=== PATIENT | female | born 1950 | race Caucasian/White ===

== ENCOUNTER 2020-10-04 09:00 | Emergency (ER) | payer MEDICARE, OTHER ==
[2020-10-04] MEDS ORDERED: Diltiazem 50 MG/10 ML SDV IVPUSH ONE ×3 (09:40→11:00)
--- NOTE | 2020-10-04 09:42 | EDM.PDOC ---
ED HPI GENERAL MEDICAL PROBLEM - General Chief Complaint: Cardiovascular Problem Stated Complaint: AFIB Time Seen by Provider: 10/04/20 09:22 Source of Information: Reports: Patient, Family (daughter), RN Notes Reviewed - History of Present Illness INITIAL COMMENTS - FREE TEXT/NARRATIVE: 70 yr old female comes with from [facility] with a fib, RVR. Pt hx is vague. [facility] staff apparently picked up rapid heart rate with morning vitals. She was just admitted to the [facility] about 4 days ago after hx of switching from peritoneal dialysis to hemodilaysis about 6 weeks ago. She than had an UT about 3 weeks a go. Had 1 stent placed. According to her daughter that "failed" and a "2nd larger stent was placed". After the 2nd stent was placed shed did have an episode of A fib with RVR requiring a Hospital admission for that. She did go back into [facility] after a couple of days according to her daughter. She does feel some intermitent palpiations this morning, chronically short of breath. No current chest pain. - Related Data Allergies Allergy/AdvReac Type Severity Reaction Status Date / Time No Known Allergies Allergy Verified 10/04/20 09:42 Home Meds: Home Meds Acetaminophen [Acetaminophen Extra Strength] 500 mg PO Q6H PRN 11/18/19 [History] Fluticasone/Salmeterol [Advair 100-50] 1 puff INH BID PRN 11/18/19 [History] Omeprazole 20 mg PO DAILY 11/18/19 [History] Aspirin [Halfprin] 81 mg PO DAILY 10/04/20 [History] B Complex W-C No.20/Folic Acid [Ironside Caps Softgel] 1 mg PO DAILY 10/04/20 [History] Calcium Acetate [PhosLo] 667 mg PO TID 10/04/20 [History] Metoprolol Tartrate [Lopressor] 50 mg PO BID 10/04/20 [History] Nitroglycerin [Nitrostat] 0.4 mg SL ASDIRECTED PRN 10/04/20 [History] Ondansetron [Zofran ODT] 4 mg PO Q4H PRN 10/04/20 [History] Sodium Bicarbonate 650 mg PO TID 10/04/20 [History] Ticagrelor [Brilinta] 90 mg PO BID 10/04/20 [History] atorvaSTATin [Lipitor] 40 mg PO BEDTIME 10/04/20 [History] traMADol [Ultram] 50 mg PO DAILY PRN 10/04/20 [History] Past Medical History HEENT History: Reports: Cataract, Other (See Below) Other HEENT History: WEARS BILAT HEARING AIDES Cardiovascular History: Reports: High Cholesterol, Hypertension, Other (See Below) Other Cardiovascular History: HX OF HYPERTENSIVE URGENCY Respiratory History: Reports: None Gastrointestinal History: Reports: Colon Polyp, Other (See Below) Other Gastrointestinal History: HX OF PERITONITIS Genitourinary History: Reports: Chronic Renal Insuffiency, Other (See Below) Other Genitourinary History: PERITONEAL Dialysis. chest dialysis [employer] INSPECTOR History: Reports: Musculoskeletal History: Reports: Gout, Neck Pain, Chronic Neurological History: Reports: Headaches, Chronic, Other (See Below) Other Neuro History: hx of headaches Psychiatric History: Reports: None Endocrine/Metabolic History: Reports: Osteopenia Hematologic History: Reports: Anemia, Iron Deficiency Immunologic History: Reports: None Oncologic (Cancer) History: Reports: None Dermatologic History: Reports: None - Infectious Disease History Infectious Disease History: Reports: Measles, Novel Coronavirus - Past Surgical History Head Surgeries/Procedures: Reports: None HEENT Surgical History: Reports: Cataract Surgery, Tonsillectomy Cardiovascular Surgical History: Reports: None Respiratory Surgical History: Reports: None GI Surgical History: Reports: Appendectomy, Colonoscopy, EGD, Polypectomy Female Surgical History: Reports: Tubal Ligation Endocrine Surgical History: Reports: None Neurological Surgical History: Reports: Lumbar Spine Musculoskeletal Surgical History: Reports: Other (See Below) Other Musculoskeletal Surgeries/Procedures:: HX OF FOOT SURGERY (left hammer toe) Oncologic Surgical History: Reports: None Dermatological Surgical History: Reports: None Social & Family History - Family History Family Medical History: No Pertinent Family History - Caffeine Use Caffeine Use: Reports: Coffee Caffeine Use Comment: 10. oz daily ED ROS GENERAL - Review of Systems Review Of Systems: See Below Constitutional: Denies: Fever, Chills, Diaphoresis HEENT: Reports: No Symptoms Respiratory: Reports: Shortness of Breath Cardiovascular: Reports: Palpitations. Denies: Chest Pain GI/Abdominal: Denies: Abdominal Pain, Nausea, Vomiting Musculoskeletal: Reports: No Symptoms Skin: Reports: Bruising Neurological: Reports: Weakness (generalized). Denies: Trouble Speaking, Change in Speech ED EXAM, GENERAL - Physical Exam Exam: See Below General Appearance: Alert, No Apparent Distress Eye Exam: Bilateral Eye: PERRL Throat/Mouth: Normal Inspection Head: Atraumatic Neck: Supple Respiratory/Chest: No Respiratory Distress, Lungs Clear, Normal Breath Sounds Cardiovascular: Tachycardia, Irregularly Irregular GI/Abdominal: Soft, Non-Tender Extremities: Normal Inspection. No: Leg Pain, Increased Warmth, Redness Neurological: Alert, No Motor/Sensory Deficits, Other (Pt is not mentally sharp, mild confusion, does answer simple questions appropriately) Skin Exam: Warm, Dry, Normal Color #1 Interpretation EKG Date: 10/04/20 Rhythm: A-Fib P-Wave: Absent QRS: Other (borderline q waves inf. leads) ST-T: Normal Course - Vital Signs Last Recorded V/S: Last Vital Signs Temp 98.4 F 10/04/20 09:08 Pulse 129 H 10/04/20 12:32 Resp 24 H 10/04/20 09:08 BP 101/58 L 10/04/20 12:32 Pulse Ox 100 10/04/20 09:08 - Orders/Labs/Meds Orders: Active Orders 24 hr Category Date Time Status EKG 12 Lead [EKG Documentation Completion] [RC] STAT Care 10/04/20 09:29 Active Chest 1V Frontal [CR] Stat Exams 10/04/20 09:37 Taken EKG 12 Lead [EK] Stat Ther 10/04/20 09:30 Ordered Labs: Laboratory Tests 10/04/20 10/04/20 10/04/20 Range/Units 09:30 09:30 09:30 WBC 10.42 H (3.98-10.04) K/mm3 RBC 3.37 L (3.98-5.22) M/mm3 Hgb 10.8 L (11.2-15.7) gm/dl Hct 32.9 L (34.1-44.9) % MCV 97.6 H (79.4-94.8) fl MCH 32.0 (25.6-32.2) pg MCHC 32.8 (32.2-35.5) g/dl RDW Std Deviation 68.4 H (36.4-46.3) fL Plt Count 204 (182-369) K/mm3 MPV 10.6 (9.4-12.3) fl Neut % (Auto) 81.4 H (34.0-71.1) % Lymph % (Auto) 5.9 L (19.3-51.7) % [place] % (Auto) 10.1 (4.7-12.5) % Eos % (Auto) 1.9 (0.7-5.8) Baso % (Auto) 0.3 (0.1-1.2) % Neut # (Auto) 8.49 H (1.56-6.13) K/mm3 Lymph # (Auto) 0.61 L (1.18-3.74) K/mm3 [place] # (Auto) 1.05 H (0.24-0.36) K/mm3 Eos # (Auto) 0.20 (0.04-0.36) K/mm3 Baso # (Auto) 0.03 (0.01-0.08) K/mm3 Manual Slide Review Normal smear Sodium 138 (136-145) mEq/L Potassium 4.6 (3.5-5.1) mEq/L Chloride 102 (98-107) mEq/L Carbon Dioxide 24 (21-32) mEq/L Anion Gap 16.6 H (5-15) BUN 37 H (7-18) mg/dL Creatinine 5.6 H (0.55-1.02) mg/dL Est Cr Clr Drug Dosing TNP Estimated GFR (MDRD) 7 (>60) mL/min BUN/Creatinine Ratio 6.6 L (14-18) Glucose 100 H (70-99) mg/dL Calcium 8.9 (8.5-10.1) mg/dL Total Bilirubin 1.7 H (0.2-1.0) mg/dL AST 86 H (15-37) U/L ALT 122 H (14-59) U/L Alkaline Phosphatase 180 H (46-116) U/L NT-Pro-B Natriuret Pep > 94385 H (0-125) pg/mL Total Protein 6.6 (6.4-8.2) g/dl Albumin 2.0 L (3.4-5.0) g/dl Globulin 4.6 gm/dL Albumin/Globulin Ratio 0.4 L (1-2) SARS-CoV-2 RNA (EDUARD) (NEGATIVE) 10/04/20 Range/Units 09:55 WBC (3.98-10.04) K/mm3 RBC (3.98-5.22) M/mm3 Hgb (11.2-15.7) gm/dl Hct (34.1-44.9) % MCV (79.4-94.8) fl MCH (25.6-32.2) pg MCHC (32.2-35.5) g/dl RDW Std Deviation (36.4-46.3) fL Plt Count (182-369) K/mm3 MPV (9.4-12.3) fl Neut % (Auto) (34.0-71.1) % Lymph % (Auto) (19.3-51.7) % [place] % (Auto) (4.7-12.5) % Eos % (Auto) (0.7-5.8) Baso % (Auto) (0.1-1.2) % Neut # (Auto) (1.56-6.13) K/mm3 Lymph # (Auto) (1.18-3.74) K/mm3 [place] # (Auto) (0.24-0.36) K/mm3 Eos # (Auto) (0.04-0.36) K/mm3 Baso # (Auto) (0.01-0.08) K/mm3 Manual Slide Review Sodium (136-145) mEq/L Potassium (3.5-5.1) mEq/L Chloride (98-107) mEq/L Carbon Dioxide (21-32) mEq/L Anion Gap (5-15) BUN (7-18) mg/dL Creatinine (0.55-1.02) mg/dL Est Cr Clr Drug Dosing Estimated GFR (MDRD) (>60) mL/min BUN/Creatinine Ratio (14-18) Glucose (70-99) mg/dL Calcium (8.5-10.1) mg/dL Total Bilirubin (0.2-1.0) mg/dL AST (15-37) U/L ALT (14-59) U/L Alkaline Phosphatase (46-116) U/L NT-Pro-B Natriuret Pep (0-125) pg/mL Total Protein (6.4-8.2) g/dl Albumin (3.4-5.0) g/dl Globulin gm/dL Albumin/Globulin Ratio (1-2) SARS-CoV-2 RNA (EDUARD) Negative (NEGATIVE) Meds: Medications Discontinued Medications Generic Name Dose Route Start Last Admin Trade Name Rodrigo PRN Reason Stop Dose Admin Diltiazem HCl 20 mg 10/04/20 09:40 10/04/20 09:56 Diltiazem 50 Mg/10 Ml Sdv IVPUSH 10/04/20 09:41 20 mg ONETIME ONE Administration Diltiazem HCl 10 mg 10/04/20 10:31 10/04/20 10:40 Diltiazem 50 Mg/10 Ml Sdv IVPUSH 10/04/20 10:32 10 mg ONETIME ONE Administration Diltiazem HCl 10 mg 10/04/20 11:00 10/04/20 11:07 Diltiazem 50 Mg/10 Ml Sdv IVPUSH 10/04/20 11:01 10 mg ONETIME ONE Administration Diltiazem HCl 120 mg 10/04/20 11:31 Diltiazem 120 Mg Cap.Cd PO 10/04/20 11:32 ONETIME ONE Lorazepam 0.5 mg 10/04/20 11:53 10/04/20 12:05 Lorazepam 2 Mg/Ml Sdv IVPUSH 10/04/20 11:54 0.5 mg ONETIME ONE Administration Metoprolol Tartrate 50 mg 10/04/20 12:27 10/04/20 12:32 Metoprolol Tartrate 50 Mg Tab PO 10/04/20 12:28 50 mg ONETIME ONE Administration - Re-Assessments/Exams Free Text/Narrative Re-Assessment/Exam: 10/04/20 13:22 rate did come down to 120' after first 20 mg diltizem bolus and than further 100 to 120's after 2nd 20 mg diltizem bolus. I did call [facility] for possible transfer. It was suggested by Dr Cole, Hospitalist interior surface insulation worker to give her 50 mg oral lopressor now and than go to 100 mg bid with Obs admission her to moniter how she responds to that. I did visit with our Hospitalist interior surface insulation worker. He is uncomfortable with that plan due to recent Cardiac hx, current findings of at least mild to moderate CHF. CXR does show cardiomegally, some pulmonary congestion. BNP > 35,000. He believes it will be hard to have her stablized for discharge by tomorrow. I did call Dr Cole back and he does accept her for transfer. She is currently being transported by ground ambulance. Departure - Departure Time of Disposition: 12:45 Disposition: DC/Tfer to [facility] Reason for Transfer *Q: Other Condition: Fair Clinical Impression: Atrial fibrillation Qualifiers: Atrial fibrillation type: paroxysmal Qualified Code(s): I48.0 - Paroxysmal a trial fibrillation Congestive cardiac failure Qualifiers: Heart failure type: combined systolic and diastolic Heart failure chronicity: acute on chronic Qualified Code(s): I50.43 - Acute on chronic combined systolic (congestive) and diastolic (congestive) heart failure Renal failure Qualifiers: Renal failure chronicity: chronic Referrals: Sara Matta MD [Primary Care Provider] - Forms: ED Department Discharge Sepsis Event Note (ED) - Evaluation Sepsis Screening Result: No Definite Risk - Focused Exam Vital Signs: Vital Signs Temp Pulse Pulse Resp BP BP Pulse Ox 10/04/20 12:32 129 H 101/58 L 10/04/20 09:08 98.4 F 124 H 24 H 134/76 100 - My Orders Last 24 Hours: My Active Orders 10/04/20 09:29 EKG 12 Lead [EKG Documentation Completion] [RC] STAT 10/04/20 09:30 EKG 12 Lead [EK] Stat 10/04/20 09:37 Chest 1V Frontal [CR] Stat - Assessment/Plan Last 24 Hours: My Active Orders 10/04/20 09:29 EKG 12 Lead [EKG Documentation Completion] [RC] STAT 10/04/20 09:30 EKG 12 Lead [EK] Stat 10/04/20 09:37 Chest 1V Frontal [CR] Stat
[2020-10-04] MEDS ORDERED: Diltiazem 120 MG Cap.CD PO ONE (11:31)
[2020-10-04] MEDS: LORazepam 2 MG/ML SDV IVPUSH ONE (12:05)
[2020-10-04] MEDS ORDERED: Metoprolol Tartrate 50 MG Tab PO ONE (12:27)
--- NOTE | 2020-10-04 14:08 | CR ---
Chest: Portable view of the chest was obtained. Comparison: No prior chest imaging is available. Heart is enlarged. Central catheter is seen entering from the left side with tip lying within the superior vena cava. Pulmonary vessels are diffusely congested. Bony structures are osteopenic. Slight scoliosis is noted within the spine. Impression: 1. Findings suspicious for CHF as noted above. 2. Other findings which are incidental. Diagnostic code #3
== END 2020-10-04 13:05 ==
LOC: JD.ED 09:00
DX: I48.0 Paroxysmal atrial fibrillation (principal); E78.00 Pure hypercholesterolemia, unspecified; I11.0 Hypertensive heart disease with heart failure; I50.43 Acute on chronic combined systolic (congestive) and diastolic (congestive) heart failure; Z79.02 Long term (current) use of antithrombotics/antiplatelets; Z79.899 Other long term (current) drug therapy; Z86.16 Personal history of COVID-19; Z20.822 Contact with and (suspected) exposure to COVID-19
CPT/HCPCS: 36415; 71045; 80053; 83880; 85025; 93005; 96374; 96375; 96376; 99285; A9270; J2060; J3490; U0002; 93010; 99284